=== PATIENT | male | born 1985 ===

== ENCOUNTER 2018-03-03 18:36 | Emergency (ER) | payer OTHER ==
[2018-03-03] MEDS ORDERED: Sodium Chloride 0.9% 1,000 ML IV STA (19:13)
--- NOTE | 2018-03-03 19:13 | ED PDOC ---
HPI: Psych/Substance Abuse Time Seen by Provider: 03/03/18 19:09 Chief Complaint (Nursing): Psychiatric Evaluation Chief Complaint (Provider): crisis eval History Per: Patient Additional Complaint(s): 32 year old presents for crisis evaluation. Police were called to home when patient displayed paranoia and agitation. When police arrived at home patient was screaming that his girlfriend was being raped and killed in the apartment above him. There was nobody else noted on scene as per police. Patient admits to taking 3 adderall today and drinking two 5 hour energy drinks. He denies use of any other drugs or alcohol. Patient keeps screaming that he does not want to . PMD: none Past Medical History Reviewed: Historical Data, Nursing Documentation, Vital Signs - Medical History PMH: No Chronic Diseases - Surgical History Surgical History: No Surg Hx - Family History Family History: States: No Known Family Hx - Living Arrangements Living Arrangements: Alone - Social History Current smoker - smoking cessation education provided: No Alcohol: None Drugs: Denies - Allergies Allergies/Adverse Reactions: Allergies Allergy/AdvReac Type Severity Reaction Status Date / Time No Known Allergies Allergy Verified 03/03/18 19:06 Review of Systems ROS Statement: Except As Marked, All Systems Reviewed And Found Negative Psych: Positive for: Other (acute agitation and paranoia ) Physical Exam - Reviewed Nursing Documentation Reviewed: Yes Vital Signs Reviewed: Yes - Physical Exam Appears: Positive for: Well, Non-toxic, No Acute Distress Skin: Positive for: Normal Color. Negative for: Rash Eye Exam: Positive for: Normal appearance Cardiovascular/Chest: Positive for: Tachycardia Respiratory: Positive for: Normal Breath Sounds Neurologic/Psych: Positive for: Alert, Other (acutely agitated, paranoid, combative) - Laboratory Results Result Diagrams: 03/03/18 19:50 03/03/18 19:50 - ECG O2 Sat by Pulse Oximetry: 97 Pulse Ox Interpretation: Normal - Other Rad Bedside chest X-Ray: Interpreted by Me, Viewed By Me X-Ray Interpretation: no acute finding Medical Decision Making Medical Decision Makin:05 pm 32 year old EDP Patient arrives in police custody acutely agitated and combative. He is not under arrest but was placed in handcuffs by police for his safety and safety of ED staff. Patient is uncooperative and making threats to ED staff. Patient repeatedly is screaming that he does not want to and he does not want To kill anybody. Patient was safely transferred from chair onto a stretcher and placed in 4 point restraints. He was medicated with 2 mg IM Ativan and 5 mg IM Haldol for acute agitation and combativeness. Plan: Crisis eval 1:1 bedside observation CBC CMP BAL UA UDS IVF EKG CXR 8:40 pm - patient is more calm, vital signs are stable, restraints removed, he will continue to remain under one-to-one observation 10:30 pm: patient is asleep, vital signs stable, will continue to monitor. 11:45 pm: patient is arousable signs stable Disposition - Clinical Impression Clinical Impression: Encounter for psychiatric assessment - Patient ED Disposition Is Patient to be Admitted: Transfer of Care - Disposition Disposition: Transfer of Care Disposition Time: 23:55 Condition: FAIR Forms: [employer] (Lithuanian) Patient Signed Over To: Marisela Keane PA-C Handoff Comments: Signed out pending crisis eval and final disposition Results - Lab Results Lab Results: 03/03/18 03/03/18 03/03/18 22:49 22:49 19:50 WBC 9.3 RBC 5.05 Hgb 14.9 Hct 44.0 MCV 87.1 MCH 29.4 MCHC 33.8 RDW 13.9 Plt Count 273 MPV 7.7 Neut % (Auto) 74.3 Lymph % (Auto) 16.3 L [place] % (Auto) 7.9 Eos % (Auto) 0.9 Baso % (Auto) 0.6 Neut # (Auto) 6.9 Lymph # (Auto) 1.5 [place] # (Auto) 0.7 Eos # (Auto) 0.1 Baso # (Auto) 0.1 Sodium Potassium Chloride Carbon Dioxide Anion Gap BUN Creatinine Est GFR ( Amer) Est GFR (Non-Af Amer) Random Glucose Calcium Total Bilirubin AST ALT Alkaline Phosphatase Total Protein Albumin Globulin Albumin/Globulin Ratio Urine Color Yellow Urine Clarity Slighty-cloudy Urine pH 6.0 Ur Specific [place] 1.013 Urine Protein Negative Urine Glucose (UA) Neg Urine Ketones Negative Urine Blood Negative Urine Nitrate Negative Urine Bilirubin Negative Urine Urobilinogen 0.2-1.0 Ur Leukocyte Esterase Neg Urine RBC (Auto) < 1 Urine Microscopic WBC 2 Urine Opiates Screen Negative Urine Methadone Screen Negative Ur Barbiturates Screen Negative Ur Phencyclidine Scrn Negative Ur Amphetamines Screen Positive H U Benzodiazepines Scrn Negative U Oth Cocaine Metabols Negative U Cannabinoids Screen Negative Alcohol, Quantitative 03/03/18 19:50 WBC RBC Hgb Hct MCV MCH MCHC RDW Plt Count MPV Neut % (Auto) Lymph % (Auto) [place] % (Auto) Eos % (Auto) Baso % (Auto) Neut # (Auto) Lymph # (Auto) [place] # (Auto) Eos # (Auto) Baso # (Auto) Sodium 137 Potassium 4.2 Chloride 101 Carbon Dioxide 25 Anion Gap 15 BUN 22 H Creatinine 1.2 Est GFR ( Amer) > 60 Est GFR (Non-Af Amer) > 60 Random Glucose 121 H Calcium 9.0 Total Bilirubin 1.1 AST 100 H ALT 75 H Alkaline Phosphatase 65 Total Protein 7.8 Albumin 4.3 Globulin 3.5 Albumin/Globulin Ratio 1.2 Urine Color Urine Clarity Urine pH Ur Specific [place] Urine Protein Urine Glucose (UA) Urine Ketones Urine Blood Urine Nitrate Urine Bilirubin Urine Urobilinogen Ur Leukocyte Esterase Urine RBC (Auto) Urine Microscopic WBC Urine Opiates Screen Urine Methadone Screen Ur Barbiturates Screen Ur Phencyclidine Scrn Ur Amphetamines Screen U Benzodiazepines Scrn U Oth Cocaine Metabols U Cannabinoids Screen Alcohol, Quantitative < 10
[2018-03-03 19:14] VITALS: TEMP 98.1
[2018-03-03 19:55] LABS: BASO # 0.1 K/uL (0.0-0.2); BASO % 0.6 % (0.0-2.0); EOS # 0.1 K/uL (0.0-0.7); EOS % 0.9 % (0.0-4.0); HEMOGLOBIN 14.9 g/dL (12.0-18.0); LYMPH # 1.5 K/uL (1.0-4.3); LYMPH % 16.3 % (20.0-40.0); MEAN CELL VOLUME 87.1 fl (80.0-94.0); MEAN CORPUSCULAR HEMOGLOBIN 29.4 pg (27.0-31.0); MEAN CORPUSCULAR HGB CONC 33.8 g/dL (33.0-37.0); MEAN PLATELET VOLUME 7.7 fl (7.2-11.7); MONO # 0.7 K/uL (0.0-0.8); MONO % 7.9 % (0.0-10.0); NEUT # 6.9 K/uL (1.8-7.0); NEUT % 74.3 % (50.0-75.0); RBC 5.05 Mil/uL (4.40-5.90); RED CELL DISTRIBUTION WIDTH 13.9 % (11.5-14.5); WHITE BLOOD COUNT 9.3 K/uL (4.8-10.8)
[2018-03-03 20:08] LABS: GFR AFRICAN-AMERICAN > 60; GFR NON-AFRICAN AMERICAN > 60
[2018-03-03 20:17] LABS: ALB/GLOB RATIO 1.2 (1.0-2.1); ALBUMIN 4.3 g/dL (3.5-5.0); ALT/SGPT 75 U/L (21-72); AST/SGOT 100 U/L (17-59); BLOOD UREA NITROGEN 22 mg/dl (9-20)
[2018-03-03 22:57] LABS: URINE BILIRUBIN NEGATIVE (NEGATIVE); URINE BLOOD NEGATIVE (NEGATIVE); URINE CLARITY SLIGHTY-CLOUDY (Clear); URINE COLOR YELLOW (YELLOW); URINE GLUCOSE (UA) NEG (Normal); URINE LEUKOCYTE ESTERASE NEG Leu/uL (Negative); URINE PROTEIN NEGATIVE (NEGATIVE); URINE UROBILINOGEN 0.2-1.0 mg/dL (0.2-1.0)
[2018-03-03 23:20] LABS: BARBITURATES, UR NEGATIVE (NEGATIVE); BENZODIAZEPINES, UR NEGATIVE (NEGATIVE); OPIATES, UR NEGATIVE (NEGATIVE); PHENCYCLIDINE, UR NEGATIVE (NEGATIVE)
--- NOTE | 2018-03-04 00:42 | ED PDOC ---
- Laboratory Results Result Diagrams: 03/03/18 19:50 03/03/18 19:50 - ECG O2 Sat by Pulse Oximetry: 97 (RA) Pulse Ox Interpretation: Normal Disposition - Clinical Impression Clinical Impression: Encounter for psychiatric assessment - Disposition Condition: FAIR Forms: [employer] (Hebrew)
--- NOTE | 2018-03-04 00:43 | ED PDOC ---
- Laboratory Results Result Diagrams: 03/03/18 19:50 03/03/18 19:50 - ECG O2 Sat by Pulse Oximetry: 97 (RA) Pulse Ox Interpretation: Normal Medical Decision Making Medical Decision Making: Patient was signed out to me by MADELIN Hernandez at 0000. He is medically cleared and pending crisis evaluation which will occur at approximately 2 am once patient is more awake and alert. He is currently sleeping after being given Ativan and Haldol. Patient's vitals are stable at this time. 0300 On re-evaluation, patient is now AAOx3, in no acute distress, is calm and cooperative, follows commands. He denies SI/HI, has no other complaints. Tolerated a sandwich and po fluids. Patient able to stand up and ambulate without assistance. Patient seen and evaluated by crisis, as per Dr. Avila the patient is appropriate for outpatient follow up. VS prior to dc P 65 BP 127/61 R 18 O2sat 100%RA. Scribe Attestation: Documented by, Jodi Woodard acting as a scribe for Marisela Keane PA-C. Provider Scribe Attestation: All medical record entries made by the Scribe were at my direction and personally dictated by me. I have reviewed the chart and agree that the record accurately reflects my personal performance of the history, physical exam, medical decision making, and the department course for this patient. I have also personally directed, reviewed, and agree with the discharge instructions and disposition. Disposition - Clinical Impression Clinical Impression: Encounter for psychiatric assessment, ADD (attention deficit disorder) - POA Present On Arrival: None - Disposition Disposition: Routine/Home Disposition Time: 03:30 Condition: FAIR Forms: [employer] (Israeli) - PA / CUSTOMER SERVICE ADMINISTRATOR / Resident Statement MD/DO has reviewed & agrees with the documentation as recorded.
[2018-03-04 04:20] VITALS: BP 127/61; PULSE 65; RESP 18
[2018-03-04 05:12] VITALS: O2SAT 97
--- NOTE | 2018-03-04 07:34 | RAD ---
HISTORY: clearance COMPARISON: No prior. FINDINGS: LUNGS: No active pulmonary disease. PLEURA: No significant pleural effusion identified, no pneumothorax apparent. CARDIOVASCULAR: Normal. OSSEOUS STRUCTURES: No significant abnormalities. VISUALIZED UPPER ABDOMEN: Normal. OTHER FINDINGS: None. IMPRESSION: No acute cardiopulmonary disease appreciated.
--- NOTE | 2018-03-04 08:44 | CARD ---
APPROVED REPORT EKG Measurement Heart [id number] <Conclusion> Normal sinus rhythm Rightward axis Borderline ECG
== END 2018-03-04 04:06 | disposition home or self-care (01) ==
LOC: H.ER 18:36 → EDBD 18:36 → H.ER 03-04 04:06
DX: F90.9 Attention-deficit hyperactivity disorder, unspecified type (principal)
CPT/HCPCS: 71045; 80053; 80320; 80324; 80345; 80346; 80349; 80353; 80358; 80361; 81003; 83992; 85025; 93005; 96360; 96372; 99285; J1630; J2060; J7030

== ENCOUNTER 2018-12-16 05:53 | Emergency (ER) | payer SELFPAY ==
[2018-12-16 06:06] VITALS: BMI 27.5
[2018-12-16] MEDS ORDERED: Sodium Chloride 0.9% 1,000 ML IV STA (06:11)
--- NOTE | 2018-12-16 06:42 | ED PDOC ---
HPI: Psych/Substance Abuse Time Seen by Provider: 12/16/18 05:58 Chief Complaint (Nursing): Psychiatric Evaluation Chief Complaint (Provider): Psychiatric Evaluation History Per: Patient History/Exam Limitations: no limitations Additional Complaint(s): 33 years old male with history of ADD brought in for evaluation of overdose in suicidal attempt. Patient reports he has been using Adderall 10 to 15 tablets that are 20 mg over the past 12 hours. He reports he has been depressed and missed work for the past 4 days. Patient denies any auditory hallucinations. PMD: None provided Past Medical History Reviewed: Historical Data, Nursing Documentation, Vital Signs Vital Signs: Last Vital Signs Temp 98.7 F 12/16/18 06:06 Pulse 103 H 12/16/18 06:06 Resp 18 12/16/18 06:06 BP 149/74 12/16/18 06:06 Pulse Ox 99 12/16/18 06:06 - Medical History PMH: Denies: Diabetes, Hepatitis, HIV, HTN, Seizures, Sexually Transmitted Disease Other PMH: ADD - Surgical History Surgical History: No Surg Hx - Family History Family History: States: Unknown Family Hx - Social History Drugs: Cannabis (Marijuana), Other (LSD) - Allergies Allergies/Adverse Reactions: Allergies Allergy/AdvReac Type Severity Reaction Status Date / Time No Known Allergies Allergy Verified 12/16/18 06:06 Review of Systems ROS Statement: Except As Marked, All Systems Reviewed And Found Negative Psych: Positive for: Depression, Suicidal ideation. Negative for: Other (Auditory halluciantions) Physical Exam - Reviewed Nursing Documentation Reviewed: Yes Vital Signs Reviewed: Yes - Physical Exam Appears: Positive for: Well, No Acute Distress Head Exam: Positive for: ATRAUMATIC, NORMOCEPHALIC Skin: Positive for: Normal Color, Warm, Dry Eye Exam: Positive for: Normal appearance, EOMI, PERRL ENT: Positive for: Normal ENT Inspection Neck: Positive for: Normal, Painless ROM, Supple Cardiovascular/Chest: Positive for: Regular Rate, Rhythm. Negative for: Murmur Respiratory: Positive for: Normal Breath Sounds. Negative for: Respiratory Distress Gastrointestinal/Abdominal: Positive for: Normal Exam, Soft. Negative for: Tenderness Back: Positive for: Normal Inspection. Negative for: L CVA Tenderness, R CVA Tenderness Extremity: Positive for: Normal ROM. Negative for: Pedal Edema, Deformity Neurological/Psych: Positive for: Awake, Alert, Oriented (x3) - Laboratory Results Result Diagrams: 12/16/18 06:46 12/16/18 06:46 - ECG O2 Sat by Pulse Oximetry: 99 (RA) Pulse Ox Interpretation: Normal - Critical Care Total Time (In Min): 30 Documented Critical Care: Time excludes all time spent performint seperately billable procedures Medical Decision Making Medical Decision Making: Time: 608 Initial impression: 33 y/o male with overdose insetting of suicidal ideation Initial plan: --Patient placed on 1-1 observation --Labs --EKG --Poison control consult [address] Lambert, pending labs poison consult, crisis evaluation and reevaluation. Scribe Attestation: Documented by Kyra Fish, acting as a scribe for Dino Crane MD. Provider Scribe Attestation: All medical record entries made by the Scribe were at my direction and personally dictated by me. I have reviewed the chart and agree that the record accurately reflects my personal performance of the history, physical exam, medic al decision making, and the department course for this patient. I have also personally directed, reviewed, and agree with the discharge instructions and disposition. Disposition - Clinical Impression Clinical Impression: Suicidal ideation, Overdose - Patient ED Disposition Is Patient to be Admitted: Transfer of Care - Disposition Disposition: Transfer of Care Disposition Time: 07:00 Condition: STABLE Patient Signed Over To: Nicolle Lambert (pending labs, crisis evaluation, poison consult and reevaluation)
[2018-12-16 06:49] LABS: BASO # 0.1 K/uL (0.0-0.2); BASO % 0.9 % (0.0-2.0); EOS # 0.1 K/uL (0.0-0.7); EOS % 1.4 % (0.0-4.0); LYMPH # 1.4 K/uL (1.0-4.3); LYMPH % 18.6 % (20.0-40.0); MEAN CELL VOLUME 87.1 fl (80.0-94.0); MEAN CORPUSCULAR HGB CONC 33.4 g/dL (33.0-37.0); MEAN PLATELET VOLUME 7.3 fl (7.2-11.7); MONO # 0.6 K/uL (0.0-0.8); MONO % 8.1 % (0.0-10.0); NEUT # 5.3 K/uL (1.8-7.0); RBC 5.17 Mil/uL (4.40-5.90); RED CELL DISTRIBUTION WIDTH 14.1 % (11.5-14.5); WHITE BLOOD COUNT 7.5 K/uL (4.8-10.8)
[2018-12-16 06:57] LABS: PROTHROMBIN TIME 11.1 Seconds (9.8-13.1)
[2018-12-16 06:58] LABS: ACETAMINOPHEN < 10.0 ug/ml (10.0-30.0); SALICYLATE < 1.0 mg/dl
[2018-12-16 06:59] LABS: PARTIAL THROMBOPLASTIN TIME 27.3 Seconds (25.6-37.1)
[2018-12-16 07:00] LABS: ALB/GLOB RATIO 1.3 (1.0-2.1); ALBUMIN 4.6 g/dL (3.5-5.0); ALT/SGPT 98 U/L (21-72); AST/SGOT 124 U/L (17-59); BLOOD UREA NITROGEN 22 mg/dl (9-20); CALCIUM 9.3 mg/dL (8.4-10.2); GFR NON-AFRICAN AMERICAN > 60
[2018-12-16 07:09] LABS: SQUAMOUS EPITHIAL < 1 /hpf (0-5); URINE BILIRUBIN NEGATIVE (NEGATIVE); URINE BLOOD NEGATIVE (NEGATIVE); URINE CLARITY CLEAR (Clear); URINE COLOR YELLOW (YELLOW); URINE GLUCOSE (UA) NEG (NEGATIVE); URINE LEUKOCYTE ESTERASE NEG Leu/uL (Negative); URINE PROTEIN NEGATIVE (NEGATIVE); URINE UROBILINOGEN 0.2-1.0 mg/dL (0.2-1.0)
--- NOTE | 2018-12-16 07:17 | ED PDOC ---
- Laboratory Results Result Diagrams: 12/16/18 06:46 12/16/18 06:46 Lab Results: PT 11.1 Seconds (9.8-13.1) 12/16/18 06:46 INR 1.0 12/16/18 06:46 APTT 27.3 Seconds (25.6-37.1) 12/16/18 06:46 Total Bilirubin 0.3 mg/dl (0.2-1.3) 12/16/18 06:46 AST 124 U/L (17-59) H D 12/16/18 06:46 ALT 98 U/L (21-72) H D 12/16/18 06:46 Alkaline Phosphatase 60 U/L (38-126) 12/16/18 06:46 Total Protein 8.0 G/DL (6.3-8.2) 12/16/18 06:46 Albumin 4.6 g/dL (3.5-5.0) 12/16/18 06:46 Globulin 3.4 gm/dL (2.2-3.9) 12/16/18 06:46 Albumin/Globulin Ratio 1.3 (1.0-2.1) 12/16/18 06:46 Urine Color Yellow (YELLOW) 12/16/18 07:01 Urine Clarity Clear (Clear) 12/16/18 07:01 Urine pH 6.0 (5.0-8.0) 12/16/18 07:01 Ur Specific [place] 1.010 (1.003-1.030) 12/16/18 07:01 Urine Protein Negative mg/dL (NEGATIVE) 12/16/18 07:01 Urine Glucose (UA) Neg mg/dL (NEGATIVE) 12/16/18 07:01 Urine Ketones Negative mg/dL (NEGATIVE) 12/16/18 07:01 Urine Blood Negative (NEGATIVE) 12/16/18 07:01 Urine Nitrate Negative (NEGATIVE) 12/16/18 07:01 Urine Bilirubin Negative (NEGATIVE) 12/16/18 07:01 Urine Urobilinogen 0.2-1.0 mg/dL (0.2-1.0) 12/16/18 07:01 Ur Leukocyte Esterase Neg [place]/uL (Negative) 12/16/18 07:01 Urine RBC (Auto) 1 /hpf (0-3) 04/06/19 07:01 Urine Microscopic WBC < 1 /hpf (0-5) 12/16/18 07:01 Ur Squamous Epith Cells < 1 /hpf (0-5) 12/16/18 07:01 - ECG ECG Rhythm: Positive for: Sinus Rhythm (normal). Negative for: ST/T Changes Rate: 84 O2 Sat by Pulse Oximetry: 99 (RA) Pulse Ox Interpretation: Normal Medical Decision Making Medical Decision Making: Time: 0700 Patient is endorsed to provider from Dino Crane MD. Pending labs, poison consult, and crisis evaluation. Pt refusing CXR. Pt without complaints of SOB, breathing comfortably, VSS. Scribe Attestation: Documented by Taurus Metz, acting as a scribe Beena Lambert MD. Provider Scribe Attestation: All medical record entries made by the Scribe were at my direction and personally dictated by me. I have reviewed the chart and agree that the record accurately reflects my personal performance of the history, physical exam, medical decision making, and the department course for this patient. I have also personally directed, reviewed, and agree with the discharge instructions and disposition. Disposition - Clinical Impression Clinical Impression: Suicidal ideation, Overdose - POA Present On Arrival: None - Disposition Disposition: Transfer of Care Disposition Time: 15:00 Condition: STABLE Patient Signed Over To: Thiago Barney
[2018-12-16 07:22] LABS: BARBITURATES, UR NEGATIVE (NEGATIVE); BENZODIAZEPINES, UR NEGATIVE (NEGATIVE); OPIATES, UR NEGATIVE (NEGATIVE); PHENCYCLIDINE, UR NEGATIVE (NEGATIVE)
--- NOTE | 2018-12-16 15:06 | CARD ---
APPROVED REPORT Date of service: 12/16/2018 EKG Measurement Heart [id number] <Conclusion> Normal sinus rhythm with sinus arrhythmia Rightward axis Borderline ECG
--- NOTE | 2018-12-16 15:30 | ED PDOC ---
- Laboratory Results Result Diagrams: 12/16/18 06:46 12/16/18 06:46 Lab Results: PT 11.1 Seconds (9.8-13.1) 12/16/18 06:46 INR 1.0 12/16/18 06:46 APTT 27.3 Seconds (25.6-37.1) 12/16/18 06:46 Total Bilirubin 0.3 mg/dl (0.2-1.3) 12/16/18 06:46 AST 124 U/L (17-59) H D 12/16/18 06:46 ALT 98 U/L (21-72) H D 12/16/18 06:46 Alkaline Phosphatase 60 U/L (38-126) 12/16/18 06:46 Total Protein 8.0 G/DL (6.3-8.2) 12/16/18 06:46 Albumin 4.6 g/dL (3.5-5.0) 12/16/18 06:46 Globulin 3.4 gm/dL (2.2-3.9) 12/16/18 06:46 Albumin/Globulin Ratio 1.3 (1.0-2.1) 12/16/18 06:46 Urine Color Yellow (YELLOW) 12/16/18 07:01 Urine Clarity Clear (Clear) 12/16/18 07:01 Urine pH 6.0 (5.0-8.0) 12/16/18 07:01 Ur Specific [place] 1.010 (1.003-1.030) 12/16/18 07:01 Urine Protein Negative mg/dL (NEGATIVE) 12/16/18 07:01 Urine Glucose (UA) Neg mg/dL (NEGATIVE) 12/16/18 07:01 Urine Ketones Negative mg/dL (NEGATIVE) 12/16/18 07:01 Urine Blood Negative (NEGATIVE) 12/16/18 07:01 Urine Nitrate Negative (NEGATIVE) 12/16/18 07:01 Urine Bilirubin Negative (NEGATIVE) 12/16/18 07:01 Urine Urobilinogen 0.2-1.0 mg/dL (0.2-1.0) 12/16/18 07:01 Ur Leukocyte Esterase Neg [place]/uL (Negative) 12/16/18 07:01 Urine RBC (Auto) 1 /hpf (0-3) 04/06/19 07:01 Urine Microscopic WBC < 1 /hpf (0-5) 12/16/18 07:01 Ur Squamous Epith Cells < 1 /hpf (0-5) 12/16/18 07:01 - ECG O2 Sat by Pulse Oximetry: 99 (RA) Medical Decision Making Medical Decision Makin:00 Patient is signed out to me by Nicolle Lambert MD pending [facility] bed. 1900: Stable. Lungs cta. Pending [facility] bed. 2100: Stable. Alert. 2300: Dr. Crane to take over care. Fu on [facility] bed. Scribe Attestation: Documented byLynsey Merchant, acting as a scribe for Thiago Barney MD. Provider Scribe Attestation: All medical record entries made by the Scribe were at my direction and personally dictated by me. I have reviewed the chart and agree that the record accurately reflects my personal performance of the history, physical exam, medical decision making, and the department course for this patient. I have also personally directed, reviewed, and agree with the discharge instructions and disposition. Disposition - Clinical Impression Clinical Impression: Encounter for psychiatric assessment - POA Present On Arrival: None - Disposition Disposition: Transfer of Care Disposition Time: 23:37 Condition: STABLE Patient Signed Over To: Dino Crane
--- NOTE | 2018-12-17 00:11 | ED PDOC ---
- Laboratory Results Result Diagrams: 12/16/18 06:46 12/16/18 06:46 Lab Results: PT 11.1 Seconds (9.8-13.1) 12/16/18 06:46 INR 1.0 12/16/18 06:46 APTT 27.3 Seconds (25.6-37.1) 12/16/18 06:46 Total Bilirubin 0.3 mg/dl (0.2-1.3) 12/16/18 06:46 AST 124 U/L (17-59) H D 12/16/18 06:46 ALT 98 U/L (21-72) H D 12/16/18 06:46 Alkaline Phosphatase 60 U/L (38-126) 12/16/18 06:46 Total Protein 8.0 G/DL (6.3-8.2) 12/16/18 06:46 Albumin 4.6 g/dL (3.5-5.0) 12/16/18 06:46 Globulin 3.4 gm/dL (2.2-3.9) 12/16/18 06:46 Albumin/Globulin Ratio 1.3 (1.0-2.1) 12/16/18 06:46 Urine Color Yellow (YELLOW) 12/16/18 07:01 Urine Clarity Clear (Clear) 12/16/18 07:01 Urine pH 6.0 (5.0-8.0) 12/16/18 07:01 Ur Specific [place] 1.010 (1.003-1.030) 12/16/18 07:01 Urine Protein Negative mg/dL (NEGATIVE) 12/16/18 07:01 Urine Glucose (UA) Neg mg/dL (NEGATIVE) 12/16/18 07:01 Urine Ketones Negative mg/dL (NEGATIVE) 12/16/18 07:01 Urine Blood Negative (NEGATIVE) 12/16/18 07:01 Urine Nitrate Negative (NEGATIVE) 12/16/18 07:01 Urine Bilirubin Negative (NEGATIVE) 12/16/18 07:01 Urine Urobilinogen 0.2-1.0 mg/dL (0.2-1.0) 12/16/18 07:01 Ur Leukocyte Esterase Neg Mohit/uL (Negative) 12/16/18 07:01 Urine RBC (Auto) 1 /hpf (0-3) 04/06/19 07:01 Urine Microscopic WBC < 1 /hpf (0-5) 12/16/18 07:01 Ur Squamous Epith Cells < 1 /hpf (0-5) 12/16/18 07:01 - ECG O2 Sat by Pulse Oximetry: 99 (RA) Medical Decision Making Medical Decision Making: Patient signed out to provider at 00:00. Patient pending bed availability at [facility] for involuntary commitment. at current time VSS and patient is resting comfortably. At 6AM VSS and pt resting comfortably At 7AM patient signed out to Dr Lambert pending [facility] bed availability Disposition - Clinical Impression Clinical Impression: Suicidal ideation, Overdose - POA Present On Arrival: None - Disposition Disposition: Routine/Home Disposition Time: 07:00 Condition: STABLE
--- NOTE | 2018-12-17 07:17 | ED PDOC ---
- Laboratory Results Result Diagrams: 12/16/18 06:46 12/16/18 06:46 Lab Results: PT 11.1 Seconds (9.8-13.1) 12/16/18 06:46 INR 1.0 12/16/18 06:46 APTT 27.3 Seconds (25.6-37.1) 12/16/18 06:46 Total Bilirubin 0.3 mg/dl (0.2-1.3) 12/16/18 06:46 AST 124 U/L (17-59) H D 12/16/18 06:46 ALT 98 U/L (21-72) H D 12/16/18 06:46 Alkaline Phosphatase 60 U/L (38-126) 12/16/18 06:46 Total Protein 8.0 G/DL (6.3-8.2) 12/16/18 06:46 Albumin 4.6 g/dL (3.5-5.0) 12/16/18 06:46 Globulin 3.4 gm/dL (2.2-3.9) 12/16/18 06:46 Albumin/Globulin Ratio 1.3 (1.0-2.1) 12/16/18 06:46 Urine Color Yellow (YELLOW) 12/16/18 07:01 Urine Clarity Clear (Clear) 12/16/18 07:01 Urine pH 6.0 (5.0-8.0) 12/16/18 07:01 Ur Specific [place] 1.010 (1.003-1.030) 12/16/18 07:01 Urine Protein Negative mg/dL (NEGATIVE) 12/16/18 07:01 Urine Glucose (UA) Neg mg/dL (NEGATIVE) 12/16/18 07:01 Urine Ketones Negative mg/dL (NEGATIVE) 12/16/18 07:01 Urine Blood Negative (NEGATIVE) 12/16/18 07:01 Urine Nitrate Negative (NEGATIVE) 12/16/18 07:01 Urine Bilirubin Negative (NEGATIVE) 12/16/18 07:01 Urine Urobilinogen 0.2-1.0 mg/dL (0.2-1.0) 12/16/18 07:01 Ur Leukocyte Esterase Neg Mohit/uL (Negative) 12/16/18 07:01 Urine RBC (Auto) 1 /hpf (0-3) 04/06/19 07:01 Urine Microscopic WBC < 1 /hpf (0-5) 12/16/18 07:01 Ur Squamous Epith Cells < 1 /hpf (0-5) 12/16/18 07:01 - ECG O2 Sat by Pulse Oximetry: 99 (RA) Pulse Ox Interpretation: Normal Medical Decision Making Medical Decision Making: Time: 0700 Patient is endorsed to provider from Dino Crane MD. Pending [facility] [place]. - Scribe Attestation: Documented by Taurus Metz, acting as a scribe Beena Lambert MD. Provider Scribe Attestation: All medical record entries made by the Scribe were at my direction and personally dictated by me. I have reviewed the chart and agree that the record accurately reflects my personal performance of the history, physical exam, medical decision making, and the department course for this patient. I have also personally directed, reviewed, and agree with the discharge instructions and disposition. Disposition - Clinical Impression Clinical Impression: Suicidal ideation, Overdose - POA Present On Arrival: None - Disposition Disposition: Transfer of Care Disposition Time: 15:00 Condition: STABLE Patient Signed Over To: Thiago Barney
--- NOTE | 2018-12-17 09:06 | CP.PCM.CON ---
History of Present Illness - History of Present Illness History of Present Illness: Psychiatry consult note CC: Suicide attempt HPI: 33 yo male, presents s/p intentional overdose of Adderall. Patient reports that it was a suicide attempt. Patient reports feeling depressed w/ mood lability. He is minimally cooperative with interview and is currently refusing psychiatric treatment. Denies AH/VH/HI. He was screened and accepted for involuntary psychiatric admission. PPHx: Self reported h/o ADHD; denies past h/o psychiatric admissions PMHx: Denies chronic medical issues ALL: NKDA Impression: 33 yo male, presents s/p suicide attempt, needs hospitalization for treatment and safety. [place] [facility] [place] when bed is available Past Patient History - Past Social History Drugs: Cannabis (Marijuana), Other (LSD) - CARDIAC Hx Cardiac Disorders: No Hx Hypertension: No - PULMONARY Hx Tuberculosis: No - NEUROLOGICAL HX Cerebrovascular Accident: No Hx Seizures: No - HEMATOLOGICAL/ONCOLOGICAL Hx Cancer: No Hx Human Immunodeficiency Virus (HIV): No - GENITOURINARY/GYNECOLOGICAL Hx Sexually Transmitted Disorders: No - PSYCHIATRIC Hx Substance Use: Yes - SURGICAL HISTORY Hx Surgeries: No - ANESTHESIA Hx Anesthesia: No Meds Allergies/Adverse Reactions: Allergies Allergy/AdvReac Type Severity Reaction Status Date / Time No Known Allergies Allergy Verified 12/16/18 06:06 Results - Vital Signs Recent Vital Signs: Last Vital Signs Temp 98.9 F 12/17/18 07:32 Pulse 63 12/17/18 07:32 Resp 18 12/17/18 07:32 BP 120/62 12/17/18 07:32 Pulse Ox 98 12/17/18 07:32 - Labs Result Diagrams: 12/16/18 06:46 12/16/18 06:46 Labs: Laboratory Results - last 24 hr 12/17/18 08:43 POC Glucose (mg/dL) 103
--- NOTE | 2018-12-17 15:28 | ED PDOC ---
- Laboratory Results Result Diagrams: 12/16/18 06:46 12/16/18 06:46 Lab Results: PT 11.1 Seconds (9.8-13.1) 12/16/18 06:46 INR 1.0 12/16/18 06:46 APTT 27.3 Seconds (25.6-37.1) 12/16/18 06:46 Total Bilirubin 0.3 mg/dl (0.2-1.3) 12/16/18 06:46 AST 124 U/L (17-59) H D 12/16/18 06:46 ALT 98 U/L (21-72) H D 12/16/18 06:46 Alkaline Phosphatase 60 U/L (38-126) 12/16/18 06:46 Total Protein 8.0 G/DL (6.3-8.2) 12/16/18 06:46 Albumin 4.6 g/dL (3.5-5.0) 12/16/18 06:46 Globulin 3.4 gm/dL (2.2-3.9) 12/16/18 06:46 Albumin/Globulin Ratio 1.3 (1.0-2.1) 12/16/18 06:46 Urine Color Yellow (YELLOW) 12/16/18 07:01 Urine Clarity Clear (Clear) 12/16/18 07:01 Urine pH 6.0 (5.0-8.0) 12/16/18 07:01 Ur Specific [place] 1.010 (1.003-1.030) 12/16/18 07:01 Urine Protein Negative mg/dL (NEGATIVE) 12/16/18 07:01 Urine Glucose (UA) Neg mg/dL (NEGATIVE) 12/16/18 07:01 Urine Ketones Negative mg/dL (NEGATIVE) 12/16/18 07:01 Urine Blood Negative (NEGATIVE) 12/16/18 07:01 Urine Nitrate Negative (NEGATIVE) 12/16/18 07:01 Urine Bilirubin Negative (NEGATIVE) 12/16/18 07:01 Urine Urobilinogen 0.2-1.0 mg/dL (0.2-1.0) 12/16/18 07:01 Ur Leukocyte Esterase Neg [place]/uL (Negative) 12/16/18 07:01 Urine RBC (Auto) 1 /hpf (0-3) 04/06/19 07:01 Urine Microscopic WBC < 1 /hpf (0-5) 12/16/18 07:01 Ur Squamous Epith Cells < 1 /hpf (0-5) 12/16/18 07:01 - ECG O2 Sat by Pulse Oximetry: 98 - Progress ED Course And Treament: 1731: Pt. has a bed. Will transfer. Alert and stable. Medical Decision Making Medical Decision Makin Transfer of care endorsed from Dr. Lambert to this provider pending [facility] bed space, as pt has been accepted. ------- Scribe Attestation: Documented by Ruchi Bell, acting as a scribe for Thiago Barney MD. Provider Scribe Attestation: All medical record entries made by the Scribe were at my direction and personally dictated by me. I have reviewed the chart and agree that the record accurately reflects my personal performance of the history, physical exam, medical decision making, and the department course for this patient. I have also personally directed, reviewed, and agree with the discharge instructions and di sposition. Disposition - Clinical Impression Clinical Impression: Suicidal ideation - POA Present On Arrival: None - Disposition Disposition: Other Institution Disposition Time: 17:33 Condition: STABLE
[2018-12-17 20:49] VITALS: O2SAT 99
[2018-12-18 10:18] VITALS: PULSE 84
[2018-12-19 08:42] VITALS: BP 140/62; RESP 20; TEMP 97.9
== END 2018-12-17 23:50 | disposition short-term general hospital (02) ==
LOC: H.ER 05:53
DX: R45.851 Suicidal ideations (principal); F90.9 Attention-deficit hyperactivity disorder, unspecified type; Z00.8 Encounter for other general examination
CPT/HCPCS: 80053; 81003; 82948; 83605; 83735; 85025; 85610; 85730; 93005; 99285; G0480; J7030